=== PATIENT | male | born 1955 | race Caucasian/White ===

== ENCOUNTER 2021-08-18 06:17 | Inpatient (IN) ==
--- NOTE | 2021-08-08 13:24 | Anesthesiology Consultation ---
Date of Service August 08, 2021 Assessment & Plan (1) Encounter for pre-operative examination: Chart Review Chart Review: Acceptable Risk for Surgery and Patient NOT seen in Pre Admission Testing Consults Requested none History Surgery Operation Date: 08/18/21 09:35 Proposed Procedures p L4-L5 Decompression and Fusion, Spinal Cord Monitoring - Noe Gomez DO Height/Weight Height: 5 ft 8 in Weight: 92.986 kg Allergies Allergy/AdvReac Type Severity Reaction Status Date / Time almond Allergy Verified 08/01/21 11:06 egg yolk Allergy Verified 08/01/21 11:06 lettuce Allergy Verified 08/01/21 11:06 peanut Allergy Verified 08/01/21 11:06 shrimp Allergy Verified 08/01/21 11:06 amlodipine AdvReac ankle edema Verified 08/01/21 10:49 lisinopril AdvReac Cough Verified 08/01/21 10:49 rye Allergy Uncoded 08/01/21 11:20 Medications Home Medications Medication Instructions Recorded Confirmed Last Taken Quercetin 250 mg PO QAM 08/01/21 08/01/21 Unknown amino ac-vit [id number] 2 tab PO QAM 08/01/21 08/01/21 Unknown tablet ascorbic acid (vitamin C) 1,000 mg 1 g PO BID 08/01/21 08/01/21 Unknown tablet (Vitamin C) bisoprolol fumarate 5 mg tablet 5 mg PO QPM 08/01/21 08/01/21 Unknown cholecalciferol (vitamin D3) 50 50 mcg PO QAM 08/01/21 08/01/21 Unknown mcg (2,000 unit) tablet (Vitamin D3) flunisolide 25 mcg (0.025 %) nasal 1 spray INTRANASAL BID 08/01/21 08/01/21 Unknown spray hydrochlorothiazide 25 mg tablet 25 mg PO QAM 08/01/21 08/01/21 Unknown losartan 100 mg tablet 100 mg PO QAM 08/01/21 08/01/21 Unknown montelukast 10 mg tablet 10 mg PO PM 08/01/21 08/01/21 Unknown multivitamin 1 tab PO QAM 08/01/21 08/01/21 Unknown potassium chloride 20 mEq 20 meq PO QAM 08/01/21 08/01/21 Unknown tablet,extended release pravastatin 40 mg tablet 40 mg PO PM 08/01/21 08/01/21 Unknown terazosin 5 mg capsule 5 mg PO PM 08/01/21 08/01/21 Unknown vitamin B complex 1 tab PO QAM 08/01/21 08/01/21 Unknown zinc 50 mg tablet 50 mg PO QAM 08/01/21 08/01/21 Unknown Past Medical History Medical History BPH (benign prostatic hyperplasia) COVID-19 07/24/21; body aches, dry cough, loss of taste/smell, fatigue DDD (degenerative disc disease) Gluten free diet HLD (hyperlipidemia) HTN (hypertension) Spinal stenosis Past Family History Family History Mother Hypothermia following anesthesia Past Surgical History Surgical History History of colonoscopy History of tonsillectomy History of wisdom tooth extraction Social History Smoking Status: Never smoker Do You Dip or Chew Tobacco: No Hx Alcohol Use: No Hx Substance Use: No substance use type: does not use Testing Laboratory Results WBC: 5.8 H/H: 13.2/40.7 PLATELETS: 233 SODIUM: 142 POTASSIUM: 3.9 CHLORIDE: 106 CO2: 27 BUN: 19 CREATININE: 0.9 GLUCOSE: 106 Electrocardiogram Date: 08/06/21 Findings: + SB @ (47) RBBB, left axis deviation
[~2021-08-18 06:17] MED LIST: ACETAMINOPHEN 500 MG TAB PO SCH; CeleBREX 200 MG CAP PO SCH; GABAPENTIN 600 MG DOSE PO SCH; LR 15ML/HR IV SCH; ceFAZolin 2000MG 2,000 MG/15 ML SYR IV SCH
[2021-08-18] MEDS ORDERED: ATROPINE SULFATE 0.1 MG/ML 10ML SYR IV PRN (06:53)
[2021-08-18] MEDS ORDERED: ePHEDrine sulfate 50 MG/ML AMP IV PRN (06:53)
[2021-08-18] MEDS ORDERED: HYDROmorphone INJ 2 MG/ML SYR/VIAL IV PRN (06:53)
[2021-08-18] MEDS ORDERED: ONDANSETRON INJ 2 MG/ML 2 ML VIAL IV PRN ×2 (06:53→11:09)
[2021-08-18] MEDS ORDERED: fentaNYL citrate 100 MCG/2 ML VIAL ONE (07:06)
[2021-08-18] MEDS ORDERED: MIDAZOLAM HCL 1 MG/ML 2ML VIAL ONE (07:06)
[2021-08-18] MEDS ORDERED: BUPIVACAINE/EPINEPHRINE 0.25% 1:200,000 30 ML VIAL ONE (07:30)
[2021-08-18] MEDS ORDERED: ceFAZolin 330 MG/ML 1 GM VIAL ONE (07:30)
--- NOTE | 2021-08-18 07:40 | History & Physical Bridge Note ---
Date of Service August 18, 2021 History & Physical Bridge Note I have examined the patient, reviewed the History & Physical and in the interval since the performance of the History & Physical I have noted the following changes of clinical significance: no changes noted
--- NOTE | 2021-08-18 07:41 | History & Physical Report ---
Date of Service August 18, 2021 Assessment & Plan (1) Neurogenic claudication due to lumbar spinal stenosis: Plan: L4-L5 decompression and fusion History of Present Illness Chief Complaint: Back and leg pain Primary Care Provider: NO PCP This is a 65-year-old male presents with chronic persistent back and leg pain. Failing course of nonoperative care is here for surgical invention. Allergies Allergy/AdvReac Type Severity Reaction Status Date / Time almond Allergy Mild Verified 08/18/21 06:38 egg yolk Allergy Mild Verified 08/18/21 06:38 lettuce Allergy Mild Verified 08/18/21 06:38 peanut Allergy Mild Verified 08/18/21 06:38 shrimp Allergy Mild Verified 08/18/21 06:38 amlodipine AdvReac ankle edema Verified 08/18/21 06:38 lisinopril AdvReac Cough Verified 08/18/21 06:38 rye Allergy Unknown Uncoded 08/18/21 06:38 Home Medications Medication Instructions Recorded Confirmed Type Quercetin 250 mg PO QAM 08/01/21 08/18/21 History amino ac-vit [id number] 2 tab PO QAM 08/01/21 08/18/21 History tablet ascorbic acid (vitamin C) 1,000 mg 1 g PO BID 08/01/21 08/18/21 History tablet (Vitamin C) bisoprolol fumarate 5 mg tablet 5 mg PO QPM 08/01/21 08/18/21 History cholecalciferol (vitamin D3) 50 50 mcg PO QAM 08/01/21 08/18/21 History mcg (2,000 unit) tablet (Vitamin D3) flunisolide 25 mcg (0.025 %) nasal 1 spray INTRANASAL BID 08/01/21 08/18/21 History spray hydrochlorothiazide 25 mg tablet 25 mg PO QAM 08/01/21 08/18/21 History losartan 100 mg tablet 100 mg PO QAM 08/01/21 08/18/21 History montelukast 10 mg tablet 10 mg PO PM 08/01/21 08/18/21 History (Singulair) multivitamin 1 tab PO QAM 08/01/21 08/18/21 History potassium chloride 20 mEq 20 meq PO QAM 08/01/21 08/18/21 History tablet,extended release pravastatin 40 mg tablet 40 mg PO PM 08/01/21 08/18/21 History terazosin 5 mg capsule 5 mg PO PM 08/01/21 08/18/21 History vitamin B complex 1 tab PO QAM 08/01/21 08/18/21 History zinc 50 mg tablet 50 mg PO QAM 08/01/21 08/18/21 History Past Med/Surg History Medical History BPH (benign prostatic hyperplasia) COVID-19 07/24/21; body aches, dry cough, loss of taste/smell, fatigue DDD (degenerative disc disease) Gluten free diet HLD (hyperlipidemia) HTN (hypertension) Spinal stenosis Surgical History History of colonoscopy History of tonsillectomy History of wisdom tooth extraction Family History Mother Hypothermia following anesthesia Social History Smoking Status: Never smoker Second Hand Exposure: Yes (as a child); Do You Dip or Chew Tobacco: No; Hx Alcohol Use: No Hx Substance Use: No Preferred Language: [place] Communication Ability: Effective Bending Machine Operator Required: No Beliefs That Will Affect Care: None Current Living Situation: Spouse Feels Safe at Home: Yes Safety Concerns: Feels Safe At This Time Assistive Devices: Contacts and Glasses Physical Exam Physical Exam: Patient is alert and oriented Heart regular in rhythm Lungs clear Results & Data ([facility]) Vital Signs (Past 12 Hours) Vital Signs Temp Pulse Resp BP Pulse Ox 08/18/21 06:43 36.7 C 55 L 18 167/84 H 95
[2021-08-18 07:42] LABS: INR 1.1 (0.9-1.1); Partial Thromboplastin Time 27.1 Seconds (21.0-31.0); Prothrombin Time 11.2 Seconds (9.0-12.0)
[2021-08-18] MEDS ORDERED: GLYCOPYRROLATE 0.2 MG/ML VIAL ONE (08:21)
[2021-08-18] MEDS ORDERED: ONDANSETRON INJ 2 MG/ML 2 ML VIAL ONE (08:21)
[2021-08-18] MEDS ORDERED: LARYING-O-JET KIT (LTA) ONE (08:21)
[2021-08-18] MEDS ORDERED: DEXAMETHASONE SOD INJ 4 MG/ML VIAL ONE (08:21)
[2021-08-18] MEDS ORDERED: ePHEDrine sulfate 50 MG/ML AMP ONE (08:21)
[2021-08-18] MEDS ORDERED: NEOSTIGMINE METHYLSULFATE 1 MG/ML 10ML VIAL ONE (08:21)
[2021-08-18] MEDS ORDERED: PROPOFOL IV EMULSION 10 MG/ML 20 ML VIAL IV ONE (08:21)
[2021-08-18] MEDS ORDERED: ROCURONIUM BROMIDE 10 MG/ML 5 ML VIAL IV ONE (08:21)
[2021-08-18] MEDS ORDERED: PHENYLEPHRINE 100MCG/ML 5ML SYR ONE (08:21)
[2021-08-18] MEDS ORDERED: LIDOCAINE 2% 2 ML VIAL/AMP(20MG/ML) INFIL ONE (08:21)
[2021-08-18] MEDS ORDERED: HYDROmorphone INJ 2 MG/ML SYR/VIAL ONE (08:21)
[2021-08-18] MEDS ORDERED: FLOSEAL HEMOSTATIC MATRIX 10ML TOP ONE (08:44)
--- NOTE | 2021-08-18 09:50 | Operative Report ---
Post Operative Report Pre & Post Diagnosis Operation Date: 08/18/21 07:45 Pre-Op Diagnosis: Spondylolisthesis, Lumbar Region Post-Op Diagnosis: Spondylolisthesis, Lumbar Region I identified the patient and participated in the time-out.: Yes Procedure Operation Date: 08/18/21 07:45 Actual Procedures 1 lumbar decompression with bilateral medial facetectomies and foraminotomies L3-L4 L4-5. #2 posterior spinal fusion L4-L5. #3 placement of posterior instrumentation L4-5. #4 interbody fusion L4-5 #5 placement peek cage 11 x 26 mm at L4-5 per #6 placement locally harvested morselized autograft in the posterior gutters. #7 patient infuse collagen sponge, master graft in the posterior lateral gutters and I factor in the interbody space. Surgeon Noe Gomez DO Credit Compliance Officer Yanira Cassidy Estimated Blood Loss 100 Findings Consistent with Post-Op Diagnosis Specimens None Indications This is a 7-year-old male presents with above-mentioned diagnosis and course of nonoperative care is here for surgical invention. Description of Procedure Patient was met with identified informed consent obtained. Patient was then taken to the operative suite underwent intubation placed in a prone position the Robert table on top of the Abilio frame. All bony prominences well-padded eyes inspected to ensure no external pressure placed upon the. This point lumbar spine was prepped and draped no sterile fashion. Sharp dissection with the assistance of Bovie cautery was performed down to and exposing the lamina and transverse processes of L4 and L5 bilaterally. From a caudal cephalad fashion complete laminectomy of L4 partial neck of L3 was performed including bilateral medial facetectomies and foraminotomies addressing severe spinal stenosis. Pedicle screws were then placed in L4 and L5 bilaterally with assistance of fluoroscopy and the appropriately sized gris placed. By way of a transforaminal approach and left complete discectomy was performed endplates curetted to subcortical being bone and an 11 x 26 mm peek cage filled with I factor tapped in position. The rods then locked in final position bilaterally. The transverse processes of L 4 L5 burred to subcortical bleeding bone. Infuse collagen sponge master graft local autograft was placed in the posterior gutter s. 15 round NEYL drain inserted. The incision was then closed with 0 Vicryl in the fascia 2-0 Vicryl subcutaneously and 4 Monocryl for final skin closure. Steri-Strip sterile dressings placed. Patient waken taken PACU stable condition. Please note spinal cord monitoring was utilized at the procedure no changes noted. Lastly Yanira Cassidy was present at the entire procedure and while the patient positioning complex portions of the surgery and fascial closure. I attest to the content of the Intraoperative Record and any orders documented therein. Any exceptions are noted below.
[2021-08-18] MEDS: fentaNYL citrate 100 MCG/2 ML VIAL IV PRN ×2 (10:20→10:25)
[2021-08-18] MEDS ORDERED: PROMETHAZINE HCL 12.5 MG in SODIUM CHLORIDE 0.9% 50 ML IV PRN (11:09)
[2021-08-18] MEDS ORDERED: ACETAMINOPHEN 1,000 MG/100 ML VIAL IV PRN (11:09)
[2021-08-18] MEDS ORDERED: bisacodyL 10 MG SUPP PR PRN (11:09)
[2021-08-18] MEDS ORDERED: ALUMINUM/MAGNESIUM SUSP 30 ML UDC PO PRN (11:09)
[2021-08-18] MEDS ORDERED: HYDROmorphone INJ 0.5 MG/0.5 ML SYR IV PRN (11:09)
[2021-08-18] MEDS ORDERED: diphenhydrAMINE Capsule 25 MG CAP PO PRN (11:09)
[2021-08-18] MEDS ORDERED: LORazepam 0.5 MG TAB PO PRN (11:09)
[2021-08-18] MEDS ORDERED: LORazepam 0.5 MG/1 ML VIAL IV PRN (11:09)
[2021-08-18] MEDS ORDERED: METOCLOPRAMIDE HCL INJ 5 MG/ML 2 ML VIAL IV PRN (11:09)
[2021-08-18] MEDS ORDERED: NALOXONE HCL 0.4 MG/1 ML VIAL/CARP IV PRN (11:09)
[2021-08-18] MEDS ORDERED: oxyCODONE HCL IR 5 MG TAB (IMMEDIATE RELEASE) PO PRN (11:09)
[2021-08-18] MEDS ORDERED: SOD PHOSPHATE/SOD BIPHOSPHATE ENEMA 132 ML BTL PR PRN (11:09)
[2021-08-18] MEDS ORDERED: DO NOT ADMINISTER PNEUMOCOCCAL VACCINE PRN (11:09)
[2021-08-18] MEDS ORDERED: MAGNESIUM HYDROXIDE SUSP 30 ML UDC PO PRN (11:09)
[2021-08-18] MEDS ORDERED: ONDANSETRON 4 MG OD TAB PO PRN (11:09)
[2021-08-18] MEDS ORDERED: HYDROmorphone INJ 1 MG/ML SYRINGE IV PRN (11:09)
[2021-08-18] MEDS ORDERED: FAMOTIDINE 20 MG TAB PO PRN (11:09)
[2021-08-18] MEDS ORDERED: hydrOXYzine HCl 25 MG TAB PO PRN (11:09)
[2021-08-18] MEDS ORDERED: DO NOT ADMINISTER FLU VACCINE PRN (11:09)
[2021-08-18] MEDS: SODIUM CHLORIDE 0.9% 1000ML 1,000 ML IV SCH ×2 (11:23→21:00)
--- NOTE | 2021-08-18 11:36 | Fluoroscopy Report ---
FL lumbar spine 2-3V HISTORY: 65 years-old Male L4-5 DECOMPRESSION/FUSION COMPARISON: None TECHNIQUE: 2 spot fluoroscopic images of the lumbar spine were obtained utilizing 19.2 seconds fluoro scopy time FINDINGS: Posterior interbody gris and screw fusion at L4-L5 with discectomy. Visualized hardware appears intact . No unexpected opaque foreign body. IMPRESSION: Fluoroscopic assistance as above. ACT 112: Negative or not required by law. The above report was generated using voice recognition software. It may contain grammatical, syntax o r spelling errors. Electronically signed by: Ronak Edmonds M.D. 08/18/2021 11:34 AM
--- NOTE | 2021-08-18 11:56 | Consultation ---
Date of Consultation August 18, 2021 Assessment & Plan (1) Neurogenic claudication due to lumbar spinal stenosis: Neurogenic claudication due to lumbar spinal stenosis Status post L4-L5 lumbar decompression fusion by Dr. Gomez, POD #0 EBL 100 mL Tolerated procedure well Pain/wound management per orthopedics Activity and therapy as prescribed by orthopedic To new oxygen supplementation, wean as able, encourage incentive spirometry Monitor hemoglobin, preop 13.2 HTN On bisoprolol, HCTZ and losartan as outpatient Blood pressure mildly elevated Hold HCTZ, reassess in a.m. and resume as able Parameters placed on other medications He is also on potassium supplementation, monitor K HLD Continue statin Gluten free diet Patient denies history of celiac disease, but describes intolerance Also states he follows a lactose-free diet, but not truly lactose intolerant BPH Continue Terazosin History of COVID-19 Diagnosed 07/24/2021, experienced loss of taste and smell, body aches, fatigue, cough Symptoms resolved Chest x-ray reviewed and without abnormality DVT prophylaxis: SCD/teds, per orthopedic Dispo: Med/surge, per primary PCP: EGN Simon PA FULL CODE Patient was seen and examined in collaboration with, Dr. Yoder, please see addendum Thank you for this consultation. We will follow the patient with you during their hospital stay. You can reach a member of the [facility] Hospitalist Team 08/02 via hospitalist role on tiger text. The chart was completed utilizing [employer] Speech voice recognition software. Grammatical errors, random word insertions, pronoun errors, and incomplete sentences are an occasional consequence of this system due to software limitations, ambient noise, and hardware issues. Any formal questions or concerns about the content, text, or information contained within the body of this dictation should be directly addressed to the provider for clarification. Supervising Physician Co-Signing Physician Notes Pt was seen and examined. Agreed with Eda SALVADOR exam, assessment and plan. 65-year-old male with significant past medical history of HTN, HLD, history of COVID-19, BPH, spinal stenosis who presented for lumbar surgery today by Dr. Gomez. S/P L4-L5 lumbar decompression and fusion performed by Dr. Gomez today. No postop complications. Continue pain control. PT/OT eval as per ortho. Fall precaution. Continue monitor H/H. Incentive spirometry. MD Beba History of Present Illness Requesting Physician: Dr. Gomez Reason for Consultation: Postop medical management Attending Physician: Noe Gomez DO History of Present Illness This is a 65-year-old male [facility], who has significant past medical history of HTN, HLD, history of COVID-19, BPH, spinal stenosis who presented for lumbar surgery today by Dr. Gomez. He underwent an L4-L5 lumbar decompression fusion. He tolerated the procedure well. Currently he has incisional back pain of a 2-3 out of 10. He denies any radicular symptoms including pain to bilateral lower extremities, numbness or tingling. He denies any saddle anesthesia. He does not have a Marie catheter placed. He does intermittently become hypoxic when drowsy and 2 L of O2 was placed. His EBL was 100 mL. He offers no acute postoperative concerns. He denies fever, chills, sweats, chest pain, shortness of breath, nausea, vomiting, abdominal pain, cough. He denies any change in bowel or urinary habits including hematuria, dysuria, melena or hematochezia. In regards to patient's hypertension it is well controlled in the outpatient setting on mu ltidrug regimen of losartan, hydrochlorothiazide and bisoprolol. He also has hyperlipidemia controlled on pravastatin. He denies any alcohol or tobacco use. He lives at home with his . Allergies Allergy/AdvReac Type Severity Reaction Status Date / Time almond Allergy Mild Unknown Verified 08/19/21 16:58 egg yolk Allergy Mild Unknown Verified 08/19/21 16:58 lettuce Allergy Mild Unknown Verified 08/19/21 16:58 peanut Allergy Mild Gastrointestinal Verified 08/19/21 16:58 Upset shrimp Allergy Mild Unknown Verified 08/19/21 16:58 grass pollen-perennial rye, Allergy Unknown Unknown Verified 08/19/21 16:58 standar amlodipine AdvReac Mild ankle edema Verified 08/19/21 16:58 lisinopril AdvReac Mild Cough Verified 08/19/21 16:58 Home Medications Medication Instructions Recorded Confirmed Type Quercetin 250 mg PO QAM 08/01/21 08/18/21 History amino ac-vit [id number] 2 tab PO QAM 08/01/21 08/18/21 History tablet ascorbic acid (vitamin C) 1,000 mg 1 g PO BID 08/01/21 08/18/21 History tablet (Vitamin C) bisoprolol fumarate 5 mg tablet 5 mg PO QPM 08/01/21 08/18/21 History cholecalciferol (vitamin D3) 50 50 mcg PO QAM 08/01/21 08/18/21 History mcg (2,000 unit) tablet (Vitamin D3) flunisolide 25 mcg (0.025 %) nasal 1 spray INTRANASAL BID 08/01/21 08/18/21 History spray hydrochlorothiazide 25 mg tablet 25 mg PO QAM 08/01/21 08/18/21 History losartan 100 mg tablet 100 mg PO QAM 08/01/21 08/18/21 History montelukast 10 mg tablet 10 mg PO PM 08/01/21 08/18/21 History (Singulair) multivitamin 1 tab PO QAM 08/01/21 08/18/21 History potassium chloride 20 mEq 20 meq PO QAM 08/01/21 08/18/21 History tablet,extended release pravastatin 40 mg tablet 40 mg PO PM 08/01/21 08/18/21 History terazosin 5 mg capsule 5 mg PO PM 08/01/21 08/18/21 History vitamin B complex 1 tab PO QAM 08/01/21 08/18/21 History zinc 50 mg tablet 50 mg PO QAM 08/01/21 08/18/21 History oxycodone 5 mg tablet 5 mg PO Q6H PRN #30 tab 08/19/21 Rx tramadol 50 mg tablet 50 mg PO Q6H PRN #30 tab 08/19/21 Rx Patient History Medical History BPH (benign prostatic hyperplasia) COVID-19 07/24/21; body aches, dry cough, loss of taste/smell, fatigue DDD (degenerative disc disease) Gluten free diet HLD (hyperlipidemia) HTN (hypertension) Spinal stenosis Surgical History History of colonoscopy History of tonsillectomy History of wisdom tooth extraction Family History Mother Hypothermia following anesthesia Social History Smoking Status: Never smoker Second Hand Exposure: Yes (as a child); Do You Dip or Chew Tobacco: No; Hx Alcohol Use: No Hx Substance Use: No Preferred Language: Armenian Communication Ability: Effective Undercoat Sprayer Required: No Beliefs That Will Affect Care: None Current Living Situation: Spouse Feels Safe at Home: Yes Safety Concerns: Feels Safe At This Time Assistive Devices: Glasses Review of Systems Review of Systems: All systems reviewed & are unremarkable except as noted in HPI & below Physical Exam Physical Exam: Constitutional: WD/WN, vitals as above, NAD, sitting up in bed, pleasant, conversing easily Head: Normocephalic, Atraumatic Eyes: PERRL, conjunctivae normal, anicteric sclerae ENMT: external ear and nose normal, oropharynx normal Neck: trachea midline, no thyromegaly normal visual inspection Respiratory: normal respiratory effort, lungs clear to auscultation, no wheeze, rales, rhonchi. Normal insp/exp effort, no accessory muscle use Cardiovascular: RRR, no murmur, no edema , scd/teds in place. Vessels: no JVD or carotid bruit Chest: normal inspection of chest Abdomen: normal bowel sounds, soft, nontender, no hepatosplenomegaly Musculoskeletal: no cyanosis or clubbing, AROM x 4 Skin: no rashes, warm and dry normal turgor Neurologic: PERRL, EOMI, accommodation nl, no face palsy, no dysarthria CN's II-XI intact bilaterally and moves all extremities Psychiatric: A+Ox3, euthymic affect Lymphatic: no cervical or axillary lymphadenopathy : deferred Results & Data ([facility]) Vital Signs (Past 12 Hours) Vital Signs Temp Pulse Pulse Resp BP Pulse Ox 08/18/21 11:30 36.3 C L 67 16 146/72 H 96 08/18/21 11:00 36.3 C L 63 16 153/86 H 93 08/18/21 10:45 36.0 C L 62 16 145/88 H 97 08/18/21 10:35 59 L 12 147/84 H 94 08/18/21 10:25 63 12 161/87 H 94 08/18/21 10:15 63 12 161/87 H 100 08/18/21 10:05 64 14 159/82 H 99 08/18/21 09:58 36 C L 64 14 164/90 H 98 08/18/21 06:43 36.7 C 55 L 18 167/84 H 95 Laboratory Results Preoperative lab work 07/17/2021 CBC: WBC 5.8, hemoglobin 13.2, hematocrit 40.7, platelet 233 BUN 19, creatinine 0.9, sodium 142, K3.9, glucose 106 A1c 5.5 Diagnostic Findings Lumbar Spine X-Ray 08/18/21 07:45 FL lumbar spine 2-3V HISTORY: 65 years-old Male L4-5 DECOMPRESSION/FUSION COMPARISON: None TECHNIQUE: 2 spot fluoroscopic images of the lumbar spine were obtained utilizing 19.2 seconds fluoroscopy time FINDINGS: Posterior interbody gris and screw fusion at L4-L5 with discectomy. Visualized hardware appears intact. No unexpected opaque foreign body. IMPRESSION: Fluoroscopic assistance as above. ACT 112: Negative or not required by law. The above report was generated using voice recognition software. It may contain grammatical, syntax or spelling errors. Electronically signed by: Ronak Edmonds M.D. 08/18/2021 11:34 AM Preoperative chest x-ray 08/06/2021 no acute disease in the chest Medications Administered Current Inpatient Medications Acetaminophen (Acetaminophen 500 Mg Tab) 1,000 mg PO PREOP VERONICA Stop: 08/18/21 18:00 Last Admin: 08/18/21 07:02 Dose: 1,000 mg Documented by: Acetaminophen (Acetaminophen 500 Mg Tab) 1,000 mg PO Q8H PRN PRN Reason: MILD Pain Scale 1,2,3 & Pre PT Stop: 09/17/21 11:08 Al Hydrox/Mg Hydrox/Simethicone (Aluminum/Magnesium Susp 30 Ml Udc) 30 ml PO Q6H PRN PRN Reason: Dyspepsia Stop: 09/17/21 11:08 Bisacodyl (Bisacodyl 10 Mg Supp) 10 mg PA DAILY PRN PRN Reason: Constipation Stop: 09/17/21 11:08 Bisoprolol Fumarate (Bisoprolol Fumarate 5 Mg Tab) 5 mg PO QPM VERONICA Stop: 09/17/21 20:59 Celecoxib (Celebrex 200 Mg Cap) 200 mg PO PREOP VERONICA Stop: 08/18/21 18:00 Last Admin: 08/18/21 07:03 Dose: 200 mg Documented by: Diphenhydramine HCl (Diphenhydramine Capsule 25 Mg Cap) 25 mg PO Q6H PRN PRN Reason: Allergic Rhinitis/Insomnia Stop: 09/17/21 11:08 Famotidine (Famotidine 20 Mg Tab) 20 mg PO Q12H PRN PRN Reason: Dyspepsia Stop: 09/17/21 11:08 Gabapentin (Gabapentin 600 Mg Dose) 600 mg PO PREOP VERONICA Stop: 08/18/21 18:00 Last Admin: 08/18/21 07:03 Dose: 600 mg Documented by: Hydrochlorothiazide (Hydrochlorothiazide 25 Mg Tab) 25 mg PO QAM VERONICA Stop: 09/18/21 08:59 Hydromorphone HCl (Hydromorphone Inj 0.5 Mg/0.5 Ml Syr) 0.5 mg IV Q3H PRN PRN Reason: MODERATE Pain (Scale 4,5,6) & Pre PT Stop: 09/01/21 11:08 Hydromorphone HCl (Hydromorphone Inj 1 Mg/Ml Syringe) 1 mg IV Q3H PRN PRN Reason: SEVERE Pain (Scale 7,8,9,10) Stop: 09/01/21 11:08 Hydroxyzine HCl (Hydroxyzine Hcl 25 Mg Tab) 25 mg PO Q8H PRN PRN Reason: Anxiety Stop: 09/17/21 11:08 Lactated Ringer's (Lr) 1,000 mls @ 15 mls/hr IV .Q24H VERONICA Stop: 08/19/21 05:59 Last Infusion: 08/18/21 07:54 Dose: Infused Documented by: Cefazolin Sodium (Ancef 2000mg) 2,000 mg in 15 mls @ 3.75 mls/min IV PREOP VERONICA; Protocol Stop: 08/18/21 18:00 Last Admin: 08/18/21 07:50 Dose: 3.75 mls/min Documented by: Cefazolin Sodium (Ancef 2000mg) 2,000 mg in 15 mls @ 3.75 mls/min IV Q8H VERONICA; Protocol Stop: 08/19/21 00:03 Sodium Chloride (Nss 1000ml) 1,000 mls @ 100 mls/hr IV .Q10H VERONICA Stop: 09/17/21 11:08 Last Admin: 08/18/21 11:23 Dose: 100 mls/hr Documented by: Promethazine HCl 12.5 mg/ (Sodium Chloride) 50.5 mls @ 202 mls/hr IV Q6H PRN PRN Reason: Nausea &/or Vomiting Stop: 09/17/21 11:08 Acetaminophen (Ofirmev) 1,000 mg in 100 mls @ 400 mls/hr IV Q8H PRN PRN Reason: Pain Rating 1-3 & Pre PT Stop: 08/21/21 11:08 Lorazepam (Ativan) 0.5 mg in 1 mls @ 1 mls/min IV Q8H PRN PRN Reason: Sedation/Anxiety Stop: 09/17/21 11:08 Dexamethasone 6 mg/ Syringe 1.5 mls @ 1 mls/min IV DAILY VERONICA Stop: 08/21/21 09:02 Influenza Virus Vaccine Quadrival (Do Not Administer Flu Vaccine) 1 ea N/A PRN PRN PRN Reason: Notification Stop: 09/17/21 11:08 Lorazepam (Lorazepam 0.5 Mg Tab) 0.5 mg PO Q8H PRN PRN Reason: Sedation/Anxiety Stop: 09/17/21 11:08 Losartan Potassium (Losartan Potassium 50 Mg Tab) 100 mg PO QAM [facility] Stop: 09/18/21 08:59 Magnesium Hydroxide (Magnesium Hydroxide Susp 30 Ml Udc) 30 ml PO Q24H PRN PRN Reason: Constipation Stop: 09/17/21 11:08 Metoclopramide HCl (Metoclopramide Hcl Inj 5 Mg/Ml 2 Ml Vial) 10 mg IV Q6H PRN PRN Reason: Nausea &/or Vomiting Stop: 09/17/21 11:08 Montelukast Sodium (Montelukast Sodium 10 Mg Tablet) 10 mg PO PM [facility] Stop: 09/17/21 20:59 Naloxone HCl (Naloxone Hcl 0.4 Mg/1 Ml Vial/Carp) 0.1 mg IV Q5M PRN PRN Reason: Oversedation/Resp depression Stop: 09/17/21 11:08 Non-Formulary Medication (Amino Ac-Vit [id number]) 2 tab PO QAM [facility] Stop: 09/18/21 08:59 Non-Formulary Medication (Ascorbic Acid (Vitamin C) [Vitamin C]) 1 gm PO BID [facility] Stop: 09/17/21 20:59 Non-Formulary Medication (Cholecalciferol (Vitamin D3) [Vitamin D3]) 50 mcg PO QAM [facility] Stop: 09/18/21 08:59 Non-Formulary Medication (Flunisolide) 1 sprays INTNAS BID [facility] Stop: 09/17/21 20:59 Non-Formulary Medication (Multivitamin) 1 tab PO QAM [facility] Stop: 09/18/21 08:59 Non-Formulary Medication (Quercetin) 250 mg PO QAM [facility] Stop: 09/18/21 08:59 Non-Formulary Medication (Vitamin B Complex) 1 tab PO QAM [facility] Stop: 09/18/21 08:59 Non-Formulary Medication (Zinc) 50 mg PO QAM [facility] Stop: 09/18/21 08:59 Ondansetron HCl (Ondansetron Inj 2 Mg/Ml 2 Ml Vial) 4 mg IV Q6H PRN PRN Reason: Nausea &/or Vomiting Stop: 09/17/21 11:08 Ondansetron HCl (Ondansetron 4 Mg Od Tab) 4 mg PO Q6H PRN PRN Reason: Nausea Stop: 09/17/21 11:08 Oxycodone HCl (Oxycodone Hcl Ir 5 Mg Tab (Immediate Release)) 5 - 10 mg PO Q4H PRN PRN Reason: Pain & Pre PT Stop: 09/01/21 11:08 Pneumococcal Polyvalent Vaccine (Do Not Administer Pneumococcal Vaccine) 1 ea N/A PRN PRN PRN Reason: Notification Stop: 09/17/21 11:08 Polyethylene Glycol (Polyethylene (Miralax) 17 Gm Pack) 17 gm PO Q6 [facility] Stop: 09/18/21 05:59 Potassium Chloride (Potassium Chloride Crtab 20 Meq Tabcr) 20 meq PO QAM [facility] Stop: 09/18/21 08:59 Pravastatin Sodium (Pravastatin Sod 40 Mg Tab) 40 mg PO PM [facility] Stop: 09/17/21 20:59 Senna/Docusate Sodium (Docusate Sodium/Senna 50/8.6mg Tab) 2 tab PO HS [facility] Stop: 09/17/21 20:59 Sodium Biphosphate/Sodium Phosphate (Sod Phosphate/Sod Biphosphate Enema 132 Ml Btl) 132 ml PA ONE PRN PRN Reason: Constipation Stop: 09/17/21 11:08 Terazosin HCl (Terazosin Hcl 5 Mg Cap) 5 mg PO PM [facility]ON[facility] Stop: 09/17/21 20:59 Tramadol HCl (Tramadol Hcl 50 Mg Tablet) 50 - 100 mg PO Q4H PRN PRN Reason: Moderate-Severe pain & Pre PT Stop: 09/17/21 11:08 ECG Rate (beats per minute): 47 Rhythm: sinus bradycardia Findings: + RBBB
--- NOTE | 2021-08-18 15:30 | Anesthesiology Progress Note ---
Date of Service August 18, 2021 Anesthesia Post Procedure Vital Signs Vital Signs: Temp Pulse Pulse Resp BP Pulse Ox 08/18/21 14:00 36.5 C 66 16 131/72 95 08/18/21 13:06 36.7 C 66 16 142/77 H 95 08/18/21 12:00 36.6 C 62 16 133/75 96 08/18/21 11:30 36.3 C L 67 16 146/72 H 96 08/18/21 11:00 36.3 C L 63 16 153/86 H 93 08/18/21 10:45 36.0 C L 62 16 145/88 H 97 08/18/21 10:35 59 L 12 147/84 H 94 08/18/21 10:25 63 12 161/87 H 94 08/18/21 10:15 63 12 161/87 H 100 08/18/21 10:05 64 14 159/82 H 99 08/18/21 09:58 36 C L 64 14 164/90 H 98 08/18/21 06:43 36.7 C 55 L 18 167/84 H 95 Pain Intensity Lower Back: Pain Intensity: 2 Transfer of Care Handoff Completed per policy Notes Mental Status: alert / awake / arousable and participated in evaluation Patient Amnestic to Procedure: Yes Nausea / Vomiting: adequately controlled Pain: adequately controlled Airway Patency, RR, SpO2: stable & adequate BP & HR: stable & adequate Hydration State: stable & adequate Anesthetic Complications: no major complications apparent and Pt Satisfied with anesthetic care
[2021-08-18] MEDS: ceFAZolin 2000MG 2,000 MG/15 ML SYR IV SCH ×2 (16:20→23:30)
[2021-08-18] MEDS: traMADol HCL 50 MG TABLET PO PRN ×2 (18:10→22:16)
[2021-08-18] MEDS: BISOPROLOL FUMARATE 5 MG TAB PO SCH (20:42)
[2021-08-18] MEDS: PRAVASTATIN SOD 40 MG TAB PO SCH (20:42)
[2021-08-18] MEDS: ASCORBIC ACID 500 MG TAB PO SCH (20:42)
[2021-08-18] MEDS: MONTELUKAST SODIUM 10 MG TABLET PO SCH (20:43)
[2021-08-18] MEDS: TERAZOSIN HCL 5 MG CAP PO SCH (20:43)
[2021-08-18] MEDS: DOCUSATE SODIUM/SENNA 50/8.6MG TAB PO SCH (20:43)
[2021-08-19] MEDS: traMADol HCL 50 MG TABLET PO PRN ×2 (06:09→12:36)
[2021-08-19] MEDS: POLYETHYLENE (MIRALAX) 17 GM PACK PO SCH ×4 (06:10→22:30)
[2021-08-19 06:23] LABS: Basophils # (auto) 0.01 K/uL (0-0.2); Basophils % (auto) 0.1 %; Hematocrit (blood only) 33.2 % (42-52); Immature Granulocytes # (auto) 0.05 K/uL (0.00-0.02); Immature Granulocytes % (auto) 0.4 %; Lymphocytes # (auto) 0.84 K/uL (1.2-3.4); Lymphocytes % (auto) 6.2 %; Mean Corpuscular Hemoglobin 29.8 pg (25-34); Mean Corpuscular Hgb Conc 33.1 g/dL (32-36); Mean Platelet Volume 11.2 fL (7.4-10.4); Monocytes # (auto) 0.82 K/uL (0.11-0.59); Neutrophils # (auto) 11.93 K/uL (1.4-6.5); Neutrophils % (auto) 87.3 %; Platelet Count 235 K/uL (130-400); RDW Coefficient of Variation 14.6 % (11.5-14.5); RDW Standard Deviation 48.5 fL (36.4-46.3); Red Blood Count 3.69 M/uL (4.7-6.1); White Blood Count 13.65 K/uL (4.8-10.8)
[2021-08-19 06:43] LABS: BUN Creatinine Ratio 25.9 (10-20); Calcium 7.4 mg/dl (8.5-10.1); Creatinine Clr Calc Pharmacy 142.3 ml/min; Potassium 3.7 mmol/L (3.5-5.1)
[2021-08-19] MEDS: SODIUM CHLORIDE 0.9% 1000ML 1,000 ML IV SCH (07:22)
[2021-08-19] MEDS: POTASSIUM CHLORIDE CRTAB 20 MEQ TABCR PO SCH (08:17)
[2021-08-19] MEDS: ASCORBIC ACID 500 MG TAB PO SCH ×2 (08:17→21:04)
[2021-08-19] MEDS: MULTIVITAMIN TAB PO SCH (08:17)
[2021-08-19] MEDS: LOSARTAN POTASSIUM 50 MG TAB PO SCH (08:17)
[2021-08-19] MEDS: CHOLECALCIFEROL 1,000 UNITS 25 MCG TAB PO SCH (08:17)
[2021-08-19] MEDS: ZINC SULFATE 220 MG CAPSULE PO SCH (08:17)
[2021-08-19] MEDS: VITAMIN B COMPLEX TAB PO SCH (08:17)
[2021-08-19] MEDS: dexAMETHasone 6 MG in SYRINGE 0 ML IV SCH (08:18)
[2021-08-19] MEDS ORDERED: hydroCHLOROthiazide 25 MG TAB PO SCH (09:00)
[2021-08-19] MEDS ORDERED: AMINO AC VIT E ZN PROSTATE HB9 PO SCH (09:00)
[2021-08-19] MEDS ORDERED: QUERCETIN PO SCH (09:00)
--- NOTE | 2021-08-19 09:57 | Orthopedic Progress Note ---
Date of Service August 19, 2021 Assessment & Plan (1) Neurogenic claudication due to lumbar spinal stenosis: Plan: Plan at this time we will continue physical therapy monitor his NELY operatively discharge home in the next few days. Admission and Anticipated Discharge Date Admission Date: August 18, 2021 Subjective Back pain controlled leg symptoms improved Physical Exam Physical Exam: On exam patient is standing and ambulating about the room. He is quite comfortable. Is good strength testing. Results & Data ([facility]) Vital Signs (Past 12 Hours) Vital Signs Temp Pulse Resp BP Pulse Ox 08/19/21 06:07 36.9 C 64 18 132/67 94 08/19/21 02:25 36.8 C 59 L 18 113/65 08/18/21 22:28 36.5 C 64 16 132/74 93
--- NOTE | 2021-08-19 16:52 | Hospitalist Progress Note ---
Date of Service August 19, 2021 Assessment & Plan (1) Neurogenic claudication due to lumbar spinal stenosis: Plan: Neurogenic claudication due to lumbar spinal stenosis POD #1 L4-L5 lumbar decompression fusion by Dr. Gomez EBL 100 mL, drain output 515 mL to date Pain/wound management per orthopedics Activity and therapy as prescribed by orthopedic Required oxygen supplementation briefly postoperatively, now on room air Monitor H&H for acute blood loss anemia, transfuse as needed Preop 13.2--> 11.0 HTN On bisoprolol, HCTZ and losartan as outpatient BP controlled Home bisoprolol and losartan continued, will resume HCTZ and potassium replacement today HLD Continue statin Gluten free diet Patient denies history of celiac disease, but describes intolerance Also states he follows a lactose-free diet, but not truly lactose intolerant BPH Continue Terazosin History of COVID-19 Diagnosed 07/24/2021, experienced loss of taste and smell, body aches, fatigue, cough Symptoms resolved Chest x-ray reviewed and without abnormality DVT prophylaxis: SCD/teds, per orthopedic Dispo: Pending PCP: Maciel Preciado, NITA Kulkarni Thank you for this consultation. We will follow the patient with you during their hospital stay. You can reach a member of the [facility] Hospitalist Team 08/02 via hospitalist role on tiger text. Admission and Anticipated Discharge Date Admission Date: August 18, 2021 Supervising Physician Co-Signing Physician Notes Pt was seen and examined. Agreed with Shanell HERRMANN exam, assessment and plan. 65-year-old male with significant past medical history of HTN, HLD, history of COVID-19, BPH, spinal stenosis who presented for lumbar surgery today by Dr. Gomez. S/P day#1 for L4-L5 lumbar decompression and fusion performed by Dr. Gomez today. No postop complications. Continue monitor H/H. Continue pain control. Continue incentive spirometry. PT/OT eval Fall precaution. MD Beba Subjective Patient seen and examined. Follow-up for postoperative medical management s/p lumbar decompression and fusion. Patient sitting up in the chair, reports pain is well controlled. Ambulating without difficulty. Denies chest pain shortness of breath. No abdominal pain or nausea. Urinating without difficulty. + Flatus however no BM. Review of Systems Review of Systems: ROS per HPI, all other systems reviewed and negative Physical Exam Constitutional: WD/WN, vitals as above Respiratory: normal respiratory effort, lungs clear to auscultation Cardiovascular: Rate/Rhythm: regular rate and regular rhythm Vessels: normal peripheral pulses Extremities: no edema Gastrointestinal (Abdomen): Percussion/Palpation: abdomen soft; abdomen nontender Musculoskeletal: S/p back surgery, strength strong and equal BLE Skin: no rashes, warm and dry Neurologic: no focal motor deficits Psychiatric: A+Ox3, euthymic affect Results & Data Results & Data ([facility]) Vital Signs (Past 12 Hours) Vital Signs Temp Pulse Resp BP Pulse Ox 08/19/21 14:40 36.7 C 56 L 16 149/78 H 95 08/19/21 12:08 37.2 C 51 L 16 119/51 L 95 08/19/21 06:07 36.9 C 64 18 132/67 94 Laboratory Results Short CBC 08/19/21 Range/Units 05:29 WBC 13.65 H (4.8-10.8) K/uL Hgb 11.0 L (14.0-18.0) g/dL Hct 33.2 L (42-52) % Plt Count 235 (130-400) K/uL BMP 08/19/21 05:29 Sodium 136 Potassium 3.7 Chloride 104 Carbon Dioxide 25 BUN 15 Creatinine 0.58 L Glucose 116 H Calcium 7.4 L
[2021-08-19] MEDS: DOCUSATE SODIUM/SENNA 50/8.6MG TAB PO SCH (21:04)
[2021-08-19] MEDS: TERAZOSIN HCL 5 MG CAP PO SCH (21:04)
[2021-08-19] MEDS: MONTELUKAST SODIUM 10 MG TABLET PO SCH (21:04)
[2021-08-19] MEDS: BISOPROLOL FUMARATE 5 MG TAB PO SCH (21:04)
[2021-08-19] MEDS: PRAVASTATIN SOD 40 MG TAB PO SCH (21:04)
[2021-08-19] MEDS: ACETAMINOPHEN 500 MG TAB PO PRN (21:16)
[2021-08-20] MEDS: POLYETHYLENE (MIRALAX) 17 GM PACK PO SCH ×2 (05:12→12:17)
[2021-08-20 08:45] LABS: BUN Creatinine Ratio 23.7 (10-20); Calcium 8.1 mg/dl (8.5-10.1); Creatinine Clr Calc Pharmacy 139.9 ml/min; Est GFR (African American) 123.1 ml/min; Est GFR (Non-African American) 106.2 ml/min; Potassium 3.6 mmol/L (3.5-5.1)
[2021-08-20] MEDS: ACETAMINOPHEN 500 MG TAB PO PRN ×2 (08:52→14:43)
[2021-08-20] MEDS: CHOLECALCIFEROL 1,000 UNITS 25 MCG TAB PO SCH (08:53)
[2021-08-20] MEDS: dexAMETHasone 6 MG in SYRINGE 0 ML IV SCH (08:53)
[2021-08-20] MEDS: ASCORBIC ACID 500 MG TAB PO SCH (08:54)
[2021-08-20] MEDS: LOSARTAN POTASSIUM 50 MG TAB PO SCH (08:54)
[2021-08-20] MEDS: VITAMIN B COMPLEX TAB PO SCH (08:54)
[2021-08-20] MEDS: MULTIVITAMIN TAB PO SCH (08:55)
[2021-08-20] MEDS: POTASSIUM CHLORIDE CRTAB 20 MEQ TABCR PO SCH (08:55)
[2021-08-20] MEDS: ZINC SULFATE 220 MG CAPSULE PO SCH (08:56)
--- NOTE | 2021-08-20 10:58 | Discharge Summary ---
Date of Service August 20, 2021 Admission HPI Per Admitting Provider This is a 65-year-old male presents with chronic persistent back and leg pain. Failing course of nonoperative care is here for surgical invention. Principal Diagnosis Lumbar spinal stenosis with neurogenic claudication Discharge Data Allergies Allergy/AdvReac Type Severity Reaction Status Date / Time almond Allergy Mild Unknown Verified 08/19/21 16:58 egg yolk Allergy Mild Unknown Verified 08/19/21 16:58 lettuce Allergy Mild Unknown Verified 08/19/21 16:58 peanut Allergy Mild Gastrointestinal Verified 08/19/21 16:58 Upset shrimp Allergy Mild Unknown Verified 08/19/21 16:58 grass pollen-perennial rye, Allergy Unknown Unknown Verified 08/19/21 16:58 standar amlodipine AdvReac Mild ankle edema Verified 08/19/21 16:58 lisinopril AdvReac Mild Cough Verified 08/19/21 16:58 Consultations 08/18/21 11:09 Consult Hospitalist Routine Procedures Performed Operation Date: 08/18/21 07:45 Actual Procedures p L4-L5 Decompression and Fusion, Spinal Cord Monitoring(Not Applicable) - Noe Gomez DO Ordered Studies 08/18/21 07:45 FL lumbar spine 2-3V Routine Hospital Course (1) Neurogenic claudication due to lumbar spinal stenosis: Patient want lumbar decompression fusion Tars posting orthopedic for postoperative. Postop day 1 is up and ambulating progressive postop day #2. Leg pain markedly improved. Lacks strength testing. NELY drain decreasing a ppropriately. Subsequent discharge home. Discharge orders instructions from the chart for further review. Total Time Total Time Spent Total Time Spent (In Minutes): 20 minutes Discharge Plan Discharge Items Patient Disposition: Home - Self-Care Reason For Visit: Spondylolisthesis, Lumbar Region Discharge Diagnosis: Lumbar spinal stenosis with spondylolisthesis and neurogenic claudication Activity: As commented below Non-emergency contact: Primary Care Provider Call non-emergency contact if: you have any medication questions Follow-up/Referrals: PCP,NO [Primary Care Provider] - Diet: Regular Addtl Attending Provider Instructions: ACTIVITY RECOMMENDATIONS: SELF CARE INSTRUCTIONS AFTER THORACIC/LUMBAR FUSIONS 1. You may walk to your tolerance. It is good exercise for your legs and back. Expect some back and intermittent leg aches and pains. 2. You may perform "counter-top" level activities (make a sandwich, jamee with a project, etc.). 3. No bending or lifting of more than 10 pounds or back twisting of any nature (roll like a log when turning in bed). 4. You may ride in a car for 20-30 minutes at a time. No driving until after your first visit with your doctor. 5. Frequent changes of position and restricting sitting to 30 minutes at a time will help limit the amount of back spasms and stiffness you may experience. 6. You may discontinue the use of ambulatory aids (cane, crutches, etc.) once your strength and confidence allow. 7. You may bow string maker the shower and let water strike your incision when you arrive home at least once daily. Do not take a tub bath, sit in a hot tub or go into a swimming pool until after your first recheck in the office. SPECIAL CARE INSTRUCTIONS: VERY IMPORTANT TO READ AND REVIEW A. Your surgical incision has been closed with a cosmetic suture under the skin that will dissolve in about 6 weeks. In 14 days, you can use a pair of clean scissors and cut the suture that is left outside of the skin at the ends of your incision. 1. The small skin tapes can be removed 7 days after surgery if they have not fallen off by that point. 2. You may keep the wound open to air as much as possible to promote healing after post-op day number 5 unless told otherwise by your doctor. 3. If you think the wound looks like it is becoming infected (redness or worsening drainage) and/or you are experiencing fever, chill or worsening back pain and muscle spasms, contact the office so that we may evaluate you as soon as possible. B. Complications are uncommon, but please contact us if you have any signs or symptoms of: 1. wound infection (fever higher than 102.5 degrees F, redness, separation of wound, drainage, or increasing pain from the incision) 2. blood clots in legs (pain, swelling, redness and warmth in legs) 3. urinary tract infection (fever higher than 102.5 degrees F, burning upon urination or increased frequency of urination) 4. nerve problems (inability to walk on your toes or heels, numbness, loss of bowel or bladder control) 5. any other symptoms that concern you C. Please call the office at if you have any concerns or questions about your operation or recovery. D. No smoking! Smoking drastically decreases the chance of a solid fusion. E. Do not take any anti-inflammatory medications (Indocin, Advil, Motrin, Aspirin, Naprosyn, etc.) as these may inhibit the chance of a solid fusion. Tylenol is okay to take for pain. MANAGING PAIN AFTER SPINAL SURGERY 1. Narcotic medication is intended for short-term use and will be provided for surgical pain. Surgical pain usually lasts for a period of 4-6 weeks. Narcotic medication includes Percocet, Vicodin, Darvocet, Tylenol #3 or Lortab. 2. Longer-term pain is more appropriately treated with non-narcotic medication such as Tylenol ES. 3. Muscle spasm is not appropriately treated with narcotics. Muscle relaxers such as Soma, Flexeril or Skelaxin can be used along with Tylenol ES. 4. Remember that we all live with some "aches and pains". This is not unusual or uncommon after an injury or as we get older. a. Back pain is expected and may include muscle spasms for 4 to 6 weeks after surgery. The pain should gradually improve. If the pain worsens for no apparent reason, please contact the office. b. Intermittent leg pain may also be experienced and should not be concerned about unless it worsens for no apparent reason. If so, please contact the office. 5. We will provide appropriate medication within the normal guidelines of their prescribed use. We will also be very cautious and aware of potential abuse and extended duration of patients' medication needs. a. Pain medications are for your comfort and to assist with sleep and rest so that the tissue can heal. They are not provided in order to return to normal activity and should not be used through the day. To do so or worsening pain at night can result from ongoing tissue damage and development of tolerance to the prescribed medicine. 6. Please allow 2-3 days to process refills. Prescriptions will not be mailed but must be picked up at the office. FOLLOW UP VISIT: Keep your scheduled follow-up appointment. Any questions, please call the office at . Pending Studies at Discharge: No Stand-Alone Forms: [employer] [place], Smoking Cessation Medications and SD Order Prescriptions: New tramadol 50 mg tablet 50 mg PO Q6H PRN (Reason: pain, moderate) Qty: 30 RF: 0 oxycodone 5 mg tablet 5 mg PO Q6H PRN (Reason: pain, severe) Qty: 30 RF: 0 Continued multivitamin Tablet 1 tab PO QAM RF: 0 terazosin 5 mg Capsule 5 mg PO PM RF: 0 ascorbic acid (vitamin C) [Vitamin C] 1,000 mg Tablet 1 g PO BID RF: 0 pravastatin 40 mg Tablet 40 mg PO PM RF: 0 bisoprolol fumarate 5 mg Tablet 5 mg PO QPM RF: 0 flunisolide 25 mcg (0.025 %) [place],Non-Aerosol 1 spray INTRANASAL BID RF: 0 vitamin B complex Tablet 1 tab PO QAM RF: 0 montelukast [Singulair] 10 mg Tablet 10 mg PO PM RF: 0 zinc 50 mg Tablet 50 mg PO QAM RF: 0 hydrochlorothiazide 25 mg Tablet 25 mg PO QAM RF: 0 losartan 100 mg Tablet 100 mg PO QAM RF: 0 amino ac-vit [id number] Tablet 2 tab PO QAM RF: 0 cholecalciferol (vitamin D3) [Vitamin D3] 50 mcg (2,000 unit) Tablet 50 mcg PO QAM RF: 0 potassium chloride 20 mEq Tablet Extended Release 20 meq PO QAM RF: 0 Quercetin 250 mg PO QAM RF: 0 Discharge Orders: Discharge Order (Routine); Ordered 08/20/21 Ordered By: Noe Gomez Admission Data Admit Date/Time: 08/18/21 09:53 Attending Provider: Noe Gomez Admit Provider: Noe Gomez Primary Care Provider: PCP,NO Other Providers: Brittany Mercado ; Veronica Yoder ; [facility] ; Dax Diggs
--- NOTE | 2021-08-20 13:31 | Communication Note ---
Date of Service: August 20, 2021 Attending Addendum: care coordinated with ALIZE Erazo please refer to her notes for full details, I agree with her notes patient seen and examined, records reviewed by myself as well on exam, patient seen resting in bed, comfortable ambulating in the hallways with no problems minimal pain on the surgical site no chest pain, dyspnea, palpitations, dizziness no other symptoms VS noted and reviewed oriented x 3, not in distress, speaks in sentences with no effort nor accessory muscle use normal rate, regular rhythm, no murmurs clear breath sounds bilaterally non distended, soft, nontender no bipedal edema, erythema, warmth no neuro deficits WBC Hg 12 Crea 0.5 ASSESSMENT AND PLAN S/P BACK SURGERY doing well overall Hg stable HTN continue usual medications other diagnoses and plan of care as per ALIZE Erazo's notes Dax Diggs MD
--- NOTE | 2021-08-20 16:51 | Hospitalist Progress Note ---
Date of Service August 20, 2021 Assessment & Plan (1) Neurogenic claudication due to lumbar spinal stenosis: Plan: Neurogenic claudication due to lumbar spinal stenosis POD #2 L4-L5 lumbar decompression fusion by Dr. Gomez EBBautista 100 mL, drain output 660 mL to date Pain/wound management per orthopedics Activity and therapy as prescribed by orthopedic Required oxygen supplementation briefly postoperatively, now on room air Monitor H&H for acute blood loss anemia, transfuse as needed Preop 13.2--> 11.0 --> 12.0 HTN On bisoprolol, HCTZ and losartan as outpatient BP controlled Home bisoprolol and losartan continued, HCTZ and potassium replacement resumed 2/ HLD Continue statin Gluten free diet Patient denies history of celiac disease, but describes intolerance Also states he follows a lactose-free diet, but not truly lactose intolerant BPH Continue Terazosin History of COVID-19 Diagnosed 07/24/2021, experienced loss of taste and smell, body aches, fatigue, cough Symptoms resolved Chest x-ray reviewed and without abnormality DVT prophylaxis: SCD/teds, per orthopedic PCP: Maciel Preciado, NITA Kulkarni Thank you for this consultation. We will follow the patient with you during their hospital stay. You can reach a member of the [facility] Hospitalist Team 08/02 via hospitalist role on tiger text. Admission and Anticipated Discharge Date Admission Date: August 18, 2021 Subjective Patient seen and examined. Follow-up for postoperative medical management s/p lumbar decompression and fusion. Patient doing well, offers no complaints. Eager to be discharged home. Pain well controlled. Denies chest pain or shortness of breath. No abdominal pain or nausea. Urinating without difficulty. + flatus, no BM yet. Review of Systems Review of Systems: ROS per HPI, all other systems reviewed and negative Physical Exam Constitutional: WD/WN, vitals as above Respiratory: normal respiratory effort, lungs clear to auscultation Cardiovascular: Rate/Rhythm: regular rate and regular rhythm Vessels: normal peripheral pulses Extremities: no edema Gastrointestinal (Abdomen): Percussion/Palpation: abdomen soft; abdomen nontender Musculoskeletal: S/p back surgery, strength strong and equal BLE Skin: no rashes, warm and dry Neurologic: no focal motor deficits Psychiatric: A+Ox3, euthymic affect Results & Data Results & Data ([place]) Vital Signs (Past 12 Hours) Vital Signs Temp Pulse Pulse Resp BP Pulse Ox 08/20/21 12:43 36.4 C L 62 52 L 16 148/80 H 93 08/20/21 07:39 36.4 C L 52 L 16 148/80 H 93 Laboratory Results Short CBC 08/20/21 Range/Units 07:41 Hgb 12.0 L (14.0-18.0) g/dL Hct 37.0 L (42-52) % BMP 08/20/21 07:41 Sodium 141 Potassium 3.6 Chloride 108 H Carbon Dioxide 27 BUN 14 Creatinine 0.59 L Glucose 116 H Calcium 8.1 L
== END 2021-08-20 14:51 | disposition home or self-care (01) | DRG 455 ==
LOC: ASU 06:17 → 3N 09:53
DX: M48.062 Spinal stenosis, lumbar region with neurogenic claudication; E78.5 Hyperlipidemia, unspecified; Z86.16 Personal history of COVID-19; Z91.012 Allergy to eggs; Z91.010 Allergy to peanuts; M43.16 Spondylolisthesis, lumbar region; Z91.013 Allergy to seafood; N40.0 Benign prostatic hyperplasia without lower urinary tract symptoms; Z88.8 Allergy status to other drugs, medicaments and biological substances; Z79.899 Other long term (current) drug therapy; Z91.048 Other nonmedicinal substance allergy status; I10 Essential (primary) hypertension; Z91.018 Allergy to other foods